=== PATIENT | male | born 1980 | race Hispanic/Latino ===

== ENCOUNTER 2018-07-14 09:42 | Emergency (ER) | payer OTHER, SELFPAY ==
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
[2018-07-14] MEDS ORDERED: Acetaminophen 500 MG TAB ONE (11:07)
== END 2018-07-14 11:15 | disposition home or self-care (01) ==
LOC: ERS 09:42
DX: M54.5 Low back pain (principal); M54.2 Cervicalgia; V89.2XXA Person injured in unspecified motor-vehicle accident, traffic, initial encounter; W22.10XA Striking against or struck by unspecified automobile airbag, initial encounter
CPT/HCPCS: 72100; 72125

== ENCOUNTER 2018-07-17 17:25 | Emergency (ER) | payer OTHER, SELFPAY ==
[2018-07-17] MEDS ORDERED: Ketorolac Tromethamine 30 MG/ML VIAL ONE (18:23)
[2018-07-17] MEDS ORDERED: HYDROcodone/Acetaminophen 10/325 mg Tablet ONE (18:23)
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
== END 2018-07-17 19:01 | disposition home or self-care (01) ==
LOC: ERS 17:25
DX: S60.212A Contusion of left wrist, initial encounter (principal); M54.12 Radiculopathy, cervical region; M79.601 Pain in right arm; Z87.891 Personal history of nicotine dependence; Z79.899 Other long term (current) drug therapy; V43.92XA Unspecified car occupant injured in collision with other type car in traffic accident, initial encounter
CPT/HCPCS: 96372; J1885

== ENCOUNTER 2019-01-23 17:05 | Emergency (ER) | payer OTHER, SELFPAY ==
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
[2019-01-23] MEDS ORDERED: Adacel (T-DAP) 0.5 ML SYRINGE ONE (18:16)
[2019-01-23] MEDS ORDERED: Lidocaine 1% w/Epinephrine 1:100K 20 ML VIAL ONE (18:47)
[2019-01-23] MEDS ORDERED: HYDROcodone/Acetaminophen 10/325 mg Tablet ONE (18:49)
[2019-01-23] MEDS ORDERED: Bacitracin Zinc 1 Packet ONE (19:50)
== END 2019-01-23 20:10 | disposition home or self-care (01) ==
LOC: ERS 17:05
DX: S51.812A Laceration without foreign body of left forearm, initial encounter (principal); Z87.891 Personal history of nicotine dependence; W26.0XXA Contact with knife, initial encounter
CPT/HCPCS: 12004; 90471; 90715; J2001

== ENCOUNTER 2020-07-22 13:29 | Emergency (ER) | payer OTHER, SELFPAY ==
[2020-07-22] MEDS ORDERED: Dexamethasone 10 MG/ML VIAL ONE (14:06)
[2020-07-23 12:01] LABS: SARS-CoV-2 MS2 Positive; SARS-CoV-2 N Gene Negative; SARS-CoV-2 S Gene Negative; SARS-CoV-2 by NAA Not Detected (NotDetected); SARS-CoV-2 orf1ab Negative
== END 2020-07-22 15:30 | disposition home or self-care (01) ==
LOC: ERS 13:29
DX: J02.9 Acute pharyngitis, unspecified (principal); Z20.828 Contact with and (suspected) exposure to other viral communicable diseases; F17.210 Nicotine dependence, cigarettes, uncomplicated
CPT/HCPCS: 87081; 87430; 87635; 99283; J1100; U0003